=== PATIENT | female | born 1970 | race Caucasian/White ===

== ENCOUNTER → 2021-07-15 | Outpatient (CLI) | payer OTHER | END | disposition home or self-care (01) | LOC: PPH VACUNA 07:00 | PROVIDERS: ATTEND Emergency Medicine Pediatric Emergency Medicine | DX: Z23 Encounter for immunization (principal) ==

== ENCOUNTER 2025-04-24 18:13 | Inpatient (IN) | payer OTHER ==
[~2025-04-24] VITALS: Ht 157.5 cm; Wt 83.0 kg
[2025-04-24] MEDS ORDERED: YUVAFEM10 MCG VG (18:20)
[2025-04-24] MEDS ORDERED: SYNTHROID75 MCG PO (18:20)
[2025-04-24] MEDS ORDERED: ENALAPRIL MALE2.5 MG PO (18:20)
[2025-04-24] MEDS ORDERED: BENZONATATE 200 MG CAPSULE PO ONE (19:15)
[2025-04-24] MEDS ORDERED: CEFTRIAXONE SODIUM 1,000 MG VIAL IV ONE (19:15)
[2025-04-24] MEDS ORDERED: LEVALBUTEROL HCL 1.25 MG/3 ML SOLUTION IH SCH (19:15)
[2025-04-24] MEDS ORDERED: MAGNESIUM SULFATE IN WATER 2 GM/50 ML PIGGYBAG IV ONE (19:15)
[2025-04-24] MEDS ORDERED: IPRATROPIUM BROMIDE 0.5 MG/2.5 ML AMPUL.NEB IH SCH (19:15)
[2025-04-24] MEDS ORDERED: FAMOtidine 10 MG/ML (4ML VIAL) IV PUSH ONE (19:15)
[2025-04-24] MEDS ORDERED: METHYLPREDNISOLONE SOD SUCC 125 MG VIAL IV ONE (19:15)
[2025-04-24] MEDS ORDERED: LEVALBUTEROL HCL 1.25 MG/3 ML SOLUTION IH ONE (19:16)
[2025-04-24] MEDS ORDERED: IPRATROPIUM BROMIDE 0.5 MG/2.5 ML AMPUL.NEB IH ONE (19:17)
[2025-04-24] MEDS ORDERED: CEFTRIAXONE SODIUM 1,000 MG VIAL ONE (19:29)
[2025-04-24] MEDS ORDERED: METHYLPREDNISOLONE SOD SUCC 125 MG VIAL ONE (19:29)
[2025-04-24] MEDS ORDERED: MAGNESIUM SULFATE 50% 1,000 MG/2 ML VIAL ONE (19:29)
[2025-04-24] MEDS ORDERED: FAMOTIDINE/PF 20 MG/2 ML VIAL ONE (19:30)
[2025-04-24 19:34] LABS: ABG PH 7.390 (7.35-7.45); ABG PO2 73.1 mmHg (80-100); BICARBONATE 30.4 mmol/l (23-25)
[2025-04-24 19:41] LABS: o2 21 %
[2025-04-24 20:34] LABS: BASO % 1.0 % (0.1-1.2); EOS # 0.30 (0.04-0.54); EOS % 2.4 % (0.7-7.0); LYMPH # 4.62 (1.18-3.74); LYMPH % 37.5 % (19.3-53.1); MEAN PLATELET VOLUME 10.70 fl (9.4-12.4); MONO # 0.70 (0.24-0.82); MONO % 5.7 % (4.7-12.5); NEUT # 6.52 (1.56-6.13); NEUT % 53.0 % (34.0-71.1); RED CELL DISTRIBUTION WIDTH 13.8 % (11.6-14.4)
[2025-04-24 20:55] LABS: ALT/SGPT 31.0 U/L (12-78); AST/SGOT 22.0 U/L (15-37); BILIRUBIN TOTAL 0.26 mg/dL (0.3-1.2); BUN CREA RATIO 16.0 (7.0-25.0); CREATININE SERUM 0.67 mg/dL (0.55-1.02); GFR 91.38; GLOBULINA 4.3 G/DL (2.4-3.5); GLUCOSE FASTING 105.0 mg/dL (65-100); OSMOLALITY SERUM 281.0 MOSM/KG (275-295)
[2025-04-24 20:58] LABS: COVID-19 AG NEGATIVE (NEGATIVE)
[2025-04-24] MEDS ORDERED: ENOXAPARIN SODIUM 40 MG/0.4 ML SYRINGE SUBCUTANEO SCH (23:07)
[2025-04-24] MEDS ORDERED: ENALAPRIL MALEATE 2.5 MG TABLET PO SCH (23:08)
[2025-04-24] MEDS ORDERED: 0.9 % SODIUM CHLORIDE 1,000 ML IV SCH (23:15)
[2025-04-25] MEDS ORDERED: GUAIFENESIN 200 MG/10 ML BLIST.PACK PO SCH
[2025-04-25] MEDS ORDERED: IPRATROPIUM/ALBUTEROL SULFATE 3 ML AMPUL.NEB IH SCH (01:00)
[2025-04-25] MEDS ORDERED: METHYLPREDNISOLONE SOD SUCC 40 MG VIAL IV SCH (01:00)
[2025-04-25] MEDS ORDERED: IPRATROPIUM/ALBUTEROL SULFATE 3 ML AMPUL.NEB IH ONE ×4 (01:30→17:05)
[2025-04-25] MEDS ORDERED: GUAIFENESIN 200 MG/10 ML BLIST.PACK PO ONE ×2 (04:40→11:49)
[2025-04-25] MEDS ORDERED: METHYLPREDNISOLONE SOD SUCC 40 MG VIAL ONE (04:40)
[2025-04-25 04:47] LABS: INR 0.99
[2025-04-25] MEDS ORDERED: LEVOTHYROXINE SODIUM 75 MCG TABLET PO SCH (06:00)
[2025-04-25] MEDS ORDERED: CEFTRIAXONE SODIUM 2,000 MG in DEXTROSE 5 % IN WATER 100 ML IV SCH (10:41)
[2025-04-25] MEDS ORDERED: CEFTRIAXONE SODIUM 2,000 MG VIAL ONE (11:42)
[2025-04-26 03:29] VITALS: BP 120/76; O2SAT 95
[2025-04-26 08:27] VITALS: BP 120/78
[2025-04-26 19:12] VITALS: BP 126/77
[2025-04-27 02:33] VITALS: BP 143/80; O2SAT 98
[2025-04-27 09:04] VITALS: BP 132/77; O2SAT 97
[2025-04-27] MEDS ORDERED: SODIUM CHLORIDE FOR INHALATION 1 VIAL.NEB IH ONE (09:16)
[2025-04-27] MEDS ORDERED: SODIUM CHLORIDE FOR INHALATION 1 VIAL.NEB IH SCH (09:29)
[2025-04-27 15:40] LABS: ABG PH 7.419 (7.35-7.45); ABG PO2 127.0 mmHg (80-100); BICARBONATE 29.2 mmol/l (23-25)
[2025-04-27 15:41] LABS: o2 21 %
[2025-04-27 17:33] VITALS: BP 127/82
[2025-04-27] MEDS ORDERED: LORATADINE 10 MG TABLET PO SCH (21:09)
[2025-04-28] MEDS ORDERED: METHYLPREDNISOLONE SOD SUCC 40 MG VIAL IV SCH (01:00)
[2025-04-28 01:48] VITALS: BP 124/73; O2SAT 97
[2025-04-28 06:45] LABS: BASO % 0.2 % (0.1-1.2); EOS # 0.00 (0.04-0.54); EOS % 0.0 % (0.7-7.0); LYMPH # 2.03 (1.18-3.74); LYMPH % 12.2 % (19.3-53.1); MEAN PLATELET VOLUME 10.70 fl (9.4-12.4); MONO # 0.70 (0.24-0.82); MONO % 4.2 % (4.7-12.5); NEUT # 13.56 (1.56-6.13); NEUT % 81.1 % (34.0-71.1); RED CELL DISTRIBUTION WIDTH 14.3 % (11.6-14.4)
[2025-04-28 07:20] LABS: BUN CREA RATIO 29.0 (7.0-25.0); CREATININE SERUM 0.49 mg/dL (0.55-1.02); GFR 131.12; GLUCOSE FASTING 121.0 mg/dL (65-100); OSMOLALITY SERUM 281.0 MOSM/KG (275-295)
[2025-04-28 09:10] VITALS: BP 150/87; O2SAT 98
[2025-04-28 17:43] VITALS: BP 143/85; O2SAT 97
== END 2025-04-28 18:59 | disposition home or self-care (01) | DRG 203 ==
LOC: ER 18:13 → SEC-K 04-25 02:47 → MEDJ 04-25 16:20
PROVIDERS: General Practice; ADMIT Student in an Organized Health Care Education/Training Program; ATTEND Student in an Organized Health Care Education/Training Program
PROC: 3E0F7GC Introduction of Other Therapeutic Substance into Respiratory Tract, Via Natural or Artificial Opening (ICD-10-PCS; principal; 2025-04-25)
PROC: 4A033R1 Measurement of Arterial Saturation, Peripheral, Percutaneous Approach (ICD-10-PCS; 2025-04-27)
DX: J45.901 Unspecified asthma with (acute) exacerbation (principal); J06.9 Acute upper respiratory infection, unspecified